=== PATIENT | male | born 1945 | race Caucasian/White ===

== ENCOUNTER 2020-08-17 13:45 | Outpatient (CLI) | payer MEDICARE, OTHER, SELFPAY ==
--- NOTE | ~2020-08-17 | US_ITS ---
US renal BI 08/17/2020 14:15 Procedure: Realtime transabdominal ultrasound of the kidneys and bladder. Indication: Chronic kidney disease stage III Comparison: No prior studies for comparison. Findings: Renal echotexture is normal bilaterally without hydronephrosis, contour deforming mass or r enal calculus. The right kidney measures 10.8 cm and left kidney measures 11.4 cm. Bladder within no rmal limits. Impression: 1: Unremarkable renal ultrasound. No stones, masses or hydronephrosis. Reviewed, dictated and finalized at location A. [facility] Impression: 1: Unremarkable renal ultrasound. No stones, masses or hydronephrosis.
== END 2020-08-17 13:46 | disposition home or self-care (01) ==
PROVIDERS: PCP Family Medicine; Visit Provider Internal Medicine Nephrology
DX: N18.32 Chronic kidney disease, stage 3b (principal); E11.29 Type 2 diabetes mellitus with other diabetic kidney complication; I12.9 Hypertensive chronic kidney disease with stage 1 through stage 4 chronic kidney disease, or unspecified chronic kidney disease
CPT/HCPCS: 76775

== ENCOUNTER 2021-02-22 11:30 | Outpatient (CLI) | payer MEDICARE, OTHER, SELFPAY ==
[2021-02-22 11:56] LABS: Basophils Absolute Auto 0.1 K/mm3 (0.0-0.1); Basophils Percent Auto 0.9 % (0.2-1.2); Eosinophils Absolute Auto 0.5 K/mm3 (0-0.3); Hematocrit 40.4 % (42.0-52.0); Hemoglobin 13.5 g/dL (14.0-18.0); Immature Granulocyte Absolute 0.02 K/mm3 (0.00-0.031); Immature Granulocyte Percent A 0.2 % (0-0.5); Lymphocytes Absolute Auto 2.41 K/mm3 (0.9-3.2); Lymphocytes Percent Auto 29.6 % (18.3-44.2); Mean Corpuscular HGB Conc 33.4 g/dl (32-36); Mean Corpuscular Hemoglobin 31.3 pg (26-34); Mean Corpuscular Volume 93.5 fl (80-100); Monocytes Absolute Auto 0.7 K/mm3 (0.1-0.6); Monocytes Percent Auto 8.5 % (2.6-8.5); Neutrophils Absolute Auto 4.5 K/mm3 (1.3-6.7); Neutrophils Percent Auto 54.8 % (45.5-73.1); Platelet Count Result 249 k/mm3 (150-375); Red Blood Count 4.32 M/mm3 (4.6-6.20); Red Cell Distribution Width 14.3 % (11.5-14.5); White Blood Count 8.1 K/mm3 (4.5-10.0)
[2021-02-22 16:30] LABS: Alanine Aminotransferase 28 U/L (4-50); Albumin Level 4.8 g/dL (3.5-5.1); Alkaline Phosphatase 43 U/L (38-126); Anion Gap 13 mmol/L (8-16); Aspartate Amino Transferase 71 U/L (17-59); Bilirubin,Total 0.5 mg/dL (0.2-1.3); Blood Urea Nitrogen 29 mg/dL (9-20); Calcium 9.7 mg/dL (8.4-10.2); Carbon Dioxide 24 mmol/L (22-30); Chloride 101 mmol/L (98-107); Estimated Glomerular Filt Rate 34; Glucose 113 mg/dL (65-110); Potassium 4.6 mmol/L (3.4-5.0); Sodium 138 mmol/L (137-145)
[2021-02-22 16:38] LABS: Immunoglobulin A 90 mg/dL (70-400); Immunoglobulin G 1540 mg/dL (700-1600); Immunoglobulin M 53 mg/dL (40-230)
[2021-02-25 21:11] LABS: Beta-2-Microglobulin 3.21 mg/L (<=2.51)
[2021-02-26 04:47] LABS: Kappa\\Lambda Light Chains 1.56 (0.26-1.65)
[2021-02-26 22:41] LABS: Albumin 4.5 g/dL (3.8-4.8); Alpha 1 Globulin 0.2 g/dL (0.2-0.3); Alpha 2 Globulin 0.8 g/dL (0.5-0.9); Beta 1 Globulin 0.6 g/dL (0.4-0.6); Gamma Globulin 1.4 g/dL (0.8-1.7); Protein, Total 7.9 g/dL (6.1-8.1)
== END 2021-02-22 11:31 | disposition home or self-care (01) ==
LOC: ANHLAB 11:33
PROVIDERS: PCP Family Medicine; Visit Provider Internal Medicine Hematology & Oncology
DX: D72.9 Disorder of white blood cells, unspecified (principal)
CPT/HCPCS: 36415; 80053; 82232; 82784; 83883; 84155; 84165; 85025

== ENCOUNTER 2023-04-02 08:43 | Outpatient (CLI) | payer MEDICARE, OTHER, SELFPAY ==
[2023-04-19 13:18] VITALS: BMI 31.0
--- NOTE | 2023-04-19 13:18 | WPDHOMESLEEP ---
Sleep Study - Home Unattended Date of Study: 04/02/23 Ordering Provider: Atul Beckford MD Interpreting Provider: Debora Godfrey MD Home Sleep Study Type: Watch PAT Height: 1.73 m Weight: 92.533 kg Body Mass Index: 31.0 Neck Circumference (inches): 16 [place]: 4 Reason for Sleep Study Loud snoring Sleep History Jean Paul Kaufman is an 78-year-old man with loud snoring. He never awakens from sleep feeling short of breath. He never wakes at night with heartburn, belching or coughing.??He frequently snores, occasionally snores loudly enough that others complain. He never has trouble sleeping when he has a cold. He never wakes up gasping for breath during the night. He never sweats excessively at night. He never notices his heart pounding or beating irregularly during the night. He rarely falls asleep during the day. He occasionally falls asleep involuntarily, never falls asleep while driving although he is concerned that this might happen. He never experiences loss of muscle tone with strong emotion. He never has daytime difficulty at work as he is retired. He never feels paralyzed on waking or falling asleep. He never experiences vivid dreams upon waking or falling asleep. He rarely feels afraid of going to sleep. He never has nightmares. He rarely recalls his dreams. He occasionally has thoughts racing through his mind. He never feels sad or depressed. He never feels anxiety. He occasionally notices parts of his body jerk. He is not sure if he kicks during the night. He never feels crawling or aching feelings in his legs. He never feels leg pain at night. He never has morning jaw pain, he is not aware if he grinds his teeth at night. He never feels bothered by pain during the day, never awakened by pain during the night. He never wakes up feeling stiff in the morning, and he never wakes feeling sore or achy. He never awakens with pain in his neck, spine, or joints. Normal bedtime is between 9:00 p.m. and 9:30 p.m., falling asleep within 5 minutes to 20 minutes. He wakes once during the night to urinate. He typically gets between 5 and 8 hours of sleep per night. His wake up time is between 4:30 a.m. and 5:00 a.m.. He takes no naps in the day. Habits:??Tobacco: former smoker, quit years ago Caffeine: 3 servings. 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 urine microalbumin ratio 66 on 03/13/2023. Screening for diabetic retinopathy no diabetic retinopathy on 08/02/2021. No diabetic retinopathy the 07/16/2022. Telangiectasias UTI (urinary tract infection) (~09/10/22) Vitamin B12 deficiency anemia vitamin B12 low at 309 with hemoglobin 13.5 on 02/22/2022. Vitamin D deficiency, unspecified (10/23/21) Level low at 28 on 10/23/2021 Family History Family History Grandparent Diabetes mellitus, Onset Age: 40 Sibling Diabetes mellitus Family history of hypercholesterolemia Mother Patient's mother is , Onset Age: 93 Father Acute myocardial infarction, Onset Age: 86 Other Hypertension Social History Social History Smoking status: Former smoker ( the patient smoked about 1/2 of a pack daily for several years over 20 years ago.) Second hand tobacco smoke exposure: Yes Smoking end date: 06/10/97 Alcohol intake: current Alcohol use details: deon
== END 2023-04-04 11:04 | disposition home or self-care (01) ==
PROVIDERS: PCP Family Medicine; Visit Provider Family Medicine
DX: G47.10 Hypersomnia, unspecified (principal); G47.33 Obstructive sleep apnea (adult) (pediatric)
CPT/HCPCS: 95800

== ENCOUNTER 2023-05-06 08:24 | Outpatient (CLI) | payer MEDICARE, OTHER, SELFPAY ==
[2023-05-24 00:31] VITALS: BMI 32.4
--- NOTE | 2023-05-24 00:31 | WPDSLEEPSTUD ---
Sleep Study Date of Study: 05/06/23 Ordering Provider: Atul Beckford MD Interpreting Physician: Debora Godfrey MD Sleep Study Type: BiPAP Titration Height: 1.69 m Weight: 92.533 kg Body Mass Index: 32.4 Neck Circumference (inches): 16 [place]: 4 Reason for Sleep Study * 04/02/2023 -home sleep test using WatchPat on 04/02/2023 shows extremely severe obstructive sleep apnea, the apnea-hypopnea index is 52.2 with desaturation to 64% and snoring.??The patient spent 38.4 minutes below 88%.? He returns for a CPAP titration. Sleep History Jean Paul Kaufman is an 78-year-old man with loud snoring. He never awakens from sleep feeling short of breath. He never wakes at night with heartburn, belching or coughing.??He frequently snores, occasionally snores loudly enough that others complain. He never has trouble sleeping when he has a cold. He never wakes up gasping for breath during the night.? He never sweats excessively at night. He?never notices his heart pounding or beating irregularly during the night. He rarely falls asleep during the day. He?occasionally falls asleep involuntarily, never falls asleep while driving? although he is concerned that this might happen. He never experiences loss of muscle tone with strong emotion. He?never has daytime difficulty at work as he is retired.? He never feels paralyzed on waking or falling asleep. He never experiences vivid dreams upon waking or falling asleep. He rarely feels afraid of going to sleep. He never has nightmares. He rarely recalls his dreams. He occasionally has thoughts racing through his mind. He never feels sad or depressed. He never feels anxiety. He occasionally notices parts of his body jerk. He is not sure if he kicks during the night. He never feels crawling or aching feelings in his legs. He never feels leg pain at night. He never has morning jaw pain,? he is not aware if he grinds his teeth at night.? He never feels bothered by pain during the day, never awakened by pain during the night. He never wakes up feeling stiff in the morning, and he? never wakes feeling sore or achy.? He?never awakens with pain in his neck, spine, or joints. Normal bedtime is between 9:00 p.m. and 9:30 p.m., falling asleep within 5 minutes to 20 minutes. He wakes once during the night to urinate. He typically gets? between 5 and 8 hours of sleep per night. His wake up time is between 4:30 a.m. and 5:00 a.m.. He takes no naps in the day.? Habits:??Tobacco: former smoker, quit years ago? ? ? Caffeine: 3 servings. ? Alcohol: seldom ? ? Recreational substances: none [facility] Past Medical History Medical History (Updated 05/24/23 @ 00:52 by Debora Godfrey MD) Abscess and cellulitis of gluteal region Acute non-recurrent maxillary sinusitis At low risk for fall Benign hypertension with chronic kidney disease BMI 32.0-32.9,adult Chondromalacia, knee Chronic low back pain without sciatica Eczema Eosinophilia Frequent urination Hypersomnia Low back pain Obesity (BMI 30.0-34.9) Persistent microalbuminuria associated with type 2 diabetes mellitus (02/16/21) microalbuminuria with ratio of 47 on 02/16/2021. urine microalbumin ratio 66 on 03/13/2023. Screening for diabetic retinopathy no diabetic retinopathy on 08/02/2021. No diabetic retinopathy the 07/16/2022. Telangiectasias UTI (urinary tract infection) (~09/10/22) Vitamin B12 deficiency anemia vitamin B12 low at 309 with hemoglobin 13.5 on 02/22/2022. Vitamin D deficiency, unspecified (10/23/21) Level low at 28 on 10/23/2021 Family History Family History Grandparent Diabetes mellitus, Onset Age: 40 Sibling Diabetes mellitus Family history of hypercholesterolemia Mother Patient's mother is , Onset Age: 93 Father Acute myocardial infarction, Onset Age: 86 Other Hypertension Social History Social History (Reviewed 04/19/23 @ 13:25 by Debora Alicea
== END 2023-05-07 06:56 | disposition home or self-care (01) ==
LOC: ANHCSM 08:25
PROVIDERS: PCP Family Medicine; Visit Provider Family Medicine
DX: G47.33 Obstructive sleep apnea (adult) (pediatric) (principal); G47.39 Other sleep apnea
CPT/HCPCS: 95811

== ENCOUNTER 2023-09-03 08:49 | Emergency (ER) | payer MEDICARE, OTHER, SELFPAY ==
--- NOTE | ~2023-09-03 | CT_ITS ---
EXAMINATION: CTA chest PE protocol DATE: 09/03/2023 10:28 INDICATION: Hemoptysis. TECHNIQUE: Computed tomography angiography (CTA) of the chest was performed with 100 mL Omnipaque-350 intravenous contrast timed to evaluate the pulmonary arteries. Coronal maximum intensity projection 3D-reconstructions were created by the technologist. Automated exposure control and iterative reconst ruction technique were employed. The dose-length product was 502.37 mGy-cm. COMPARISON: None. FINDINGS: The lungs demonstrate mild atelectasis. No pleural effusion. There is a 4.4 cm nodule in ri ght thyroid lobe. Cardiomegaly is noted. No pericardial effusion. There is no pulmonary embolus. Ther e is a 15 mm cyst in right kidney. Median sternotomy wires are noted. There is mild thoracic spondylo sis. IMPRESSION: 1. No pulmonary embolus. 2. Right thyroid nodule. Consider thyroid ultrasound for risk stratification. Reviewed, dictated and finalized at location E.
[2023-09-03 09:03] VITALS: BP 143/61; PULSE 59; RESP 22; TEMP 36.7; O2SAT 97
--- NOTE | 2023-09-03 09:19 | ED.GENADULT ---
HPI - General Adult General Chief complaint: Unspecified Stated complaint: coughing up blood Time Seen by Provider: 09/03/23 09:09 Source: patient Mode of arrival: ambulatory Limitations: no limitations History of Present Illness HPI narrative: This is an 78-year-old male that presents to the emergency department for hemoptysis. Reports this started this morning. He has had 2 episodes of this. Clear sputum with blood streaks. No other associated symptoms. He is a former smoker. Quit about 20 years ago. Denies fevers, chest pain, shortness of breath, or lower extremity edema. Related Data Home Medications Medication Instructions Recorded Confirmed carvedilol 3.125 mg tablet 3.125 mg PO Q12H 08/28/23 08/28/23 Allergies Allergy/AdvReac Type Severity Reaction Status Date / Time No Known Allergies Allergy Verified 09/03/23 09:05 Review of Systems Review of Systems: CONSTITUTIONAL: Denies fever ENT: Denies sore throat CARDIOVASCULAR: Denies chest pain, or edema. RESPIRATORY: Reports cough. Denies dyspnea. All systems reviewed & are unremarkable except as noted in HPI and below PMFSH Past Medical History Medical History (Updated 09/03/23 @ 10:48 by Makenna Mensah PA-C) Abscess and cellulitis of gluteal region Acute non-recurrent maxillary sinusitis At low risk for fall Benign hypertension with chronic kidney disease BMI 32.0-32.9,adult Chondromalacia, knee Chronic low back pain without sciatica Eczema Eosinophilia Frequent urination Hypersomnia Low back pain Obesity (BMI 30.0-34.9) Persistent microalbuminuria associated with type 2 diabetes mellitus (02/16/21) microalbuminuria with ratio of 47 on 02/16/2021. urine microalbumin ratio 66 on 03/13/2023. Screening for diabetic retinopathy no diabetic retinopathy on 08/02/2021. No diabetic retinopathy the 07/16/2022. Telangiectasias UTI (urinary tract infection) (~09/10/22) Vitamin B12 deficiency anemia vitamin B12 low at 309 with hemoglobin 13.5 on 02/22/2022. Vitamin D deficiency, unspecified (10/23/21) Level low at 28 on 10/23/2021 Family History Family History Grandparent Diabetes mellitus, Onset Age: 40 Sibling Diabetes mellitus Family history of hypercholesterolemia Mother Patient's mother is , Onset Age: 93 Father Acute myocardial infarction, Onset Age: 86 Other Hypertension Social History Social History (Updated 08/28/23 @ 08:45 by Maxine Oviedo MA) Smoking status: Former smoker ( the patient smoked about 1/2 of a pack daily for several years over 20 years ago.) Second hand tobacco smoke exposure: Yes Smoking end date: 06/10/97 Alcohol intake: current Alcohol use details: wine or beer once a month Substance use: never Substance use type: does not use Do You Feel Safe in your Home?: Yes Lack of Transportation: No Lack of Food: Never True Current Housing: I Have Housing Concerned About Future Housing: No Difficulty Paying Gas/Electric Bills: No Difficulty Paying for Meds: No Currently Unemployed: No Education: Master's Degree or Higher Difficulty w/ Childcare or Family Care: No Gender identity (if verbalized by the patient): Male Exam Narrative: GENERAL: Elderly, well-nourished, and in no acute distress. HEAD: Normocephalic, atraumatic. EYES: EOMI. ENT: Nares clear, no rhinorrhea or epistaxis. Mucous membranes moist. Oropharynx without tonsillar hypertrophy exudate or other lesions. NECK: Supple. No adenopathy or masses. No JVD CHEST: Clear to auscultation. No respiratory distress. No wheezes rales or rhonchi HEART: Regular rate and rhythm. No murmur heard. Normal peripheral pulses. EXTREMITIES: Normal range of motion. No edema. SKIN: Warm, dry, no rash. NEURO: No focal deficits. Alert and oriented x3. PSYCH: Normal mood and affect Course Course Emergency Course: [place]
[2023-09-03 09:20] VITALS: BP 146/69; PULSE 58; RESP 16; TEMP 36.7; O2SAT 98
[2023-09-03 09:20] LABS: Basophils Absolute Auto 0.1 K/mm3 (0.0-0.1); Basophils Percent Auto 0.8 % (0.2-1.2); Eosinophils Absolute Auto 0.9 K/mm3 (0-0.3); Eosinophils Percent Auto 8.8 % (0-4.4); Hematocrit 41.3 % (42.0-52.0); Hemoglobin 13.8 g/dL (14.0-18.0); Immature Granulocyte Absolute 0.02 K/mm3 (0.00-0.031); Immature Granulocyte Percent A 0.2 % (0-0.5); Lymphocytes Percent Auto 31.2 % (18.3-44.2); Mean Corpuscular HGB Conc 33.4 g/dl (32-36); Mean Corpuscular Hemoglobin 32.6 pg (26-34); Mean Corpuscular Volume 97.6 fl (80-100); Mean Platelet Volume 9.5 fl (7.4-10.4); Monocytes Absolute Auto 0.8 K/mm3 (0.1-0.6); Monocytes Percent Auto 8.5 % (2.6-8.5); Neutrophils Absolute Auto 4.8 K/mm3 (1.3-6.7); Neutrophils Percent Auto 50.5 % (45.5-73.1); Platelet Count Result 242 k/mm3 (150-375); Red Blood Count 4.23 M/mm3 (4.6-6.20); Red Cell Distribution Width 14.1 % (11.5-14.5); White Blood Count 9.6 K/mm3 (4.5-10.0)
[2023-09-03 09:34] LABS: Alanine Aminotransferase 19 U/L (6-50); Albumin Level 4.7 g/dL (3.5-5.1); Alkaline Phosphatase 43 U/L (38-126); Anion Gap 10 mmol/L (8-16); Aspartate Amino Transferase 28 U/L (17-59); Bilirubin,Total 0.7 mg/dL (0.2-1.3); Blood Urea Nitrogen 30 mg/dL (9-20); Calcium 9.7 mg/dL (8.4-10.2); Carbon Dioxide 22 mmol/L (22-30); Chloride 104 mmol/L (98-107); Estimated CRCL calculation 33 ml/min; Estimated Glomerular Filt Rate 36; Glucose 104 mg/dL (65-110); INR 1.1; Potassium 4.5 mmol/L (3.4-5.0); Prothrombin Time 14.9 Seconds (11.1-14.7); Sodium 136 mmol/L (137-145)
[2023-09-03 09:35] LABS: Partial Thromboplastin Time 27.6 Seconds (22.3-36.8)
[2023-09-03 09:44] LABS: D Dimer 0.53 ug/mL (<0.48)
[2023-09-03 10:10] LABS: Influenza A QL RT-PCR Negative (Negative); Influenza B QL RT-PCR Negative (Negative); RSV RNA, RT-PCR Negative (Negative); SARS-CoV-2 RNA PCR Negative (Negative)
== END 2023-09-03 11:35 | disposition home or self-care (01) ==
PROVIDERS: Family Medicine; Emergency Provider Physician Assistant; PCP Family Medicine
DX: R04.2 Hemoptysis (principal); E04.1 Nontoxic single thyroid nodule; Z20.822 Contact with and (suspected) exposure to COVID-19; F17.210 Nicotine dependence, cigarettes, uncomplicated
CPT/HCPCS: 36415; 71275; 80053; 85025; 85380; 85610; 85730; 87637; 99284; Q9967

== ENCOUNTER 2023-09-09 10:32 | Outpatient (CLI) | payer MEDICARE, OTHER, SELFPAY ==
--- NOTE | ~2023-09-09 | US_ITS ---
Thyroid ultrasound. Clinical History: Thyroid nodule Findings: Real-time sonography of the thyroid gland was performed. The right lobe measures 7.3 x 4.3 x 4.4 cm. The left lobe measures 4.0 x 2.0 x 1.3 cm. The isthmus is 2 mm in AP diameter. There is a dominant right midpole nodule measuring 5.3 x 3.4 x 3.8 cm, probably solid isoechoic with small scattered cystic components. There is a 6 mm hypoechoic solid nodule at the left midpole anteri sugey. Impression: Dominant 5.3 cm right midpole nodule. Given size, FNA is advised to establish as such a diagnosis.. Reviewed, dictated and finalized at location . Impression: Dominant 5.3 cm right midpole nodule. Given size, FNA is advised to establish a s such a diagnosis..
== END 2023-09-09 10:33 ==
LOC: MICIMG 10:33
PROVIDERS: PCP Family Medicine; Visit Provider Family Medicine
DX: E04.1 Nontoxic single thyroid nodule (principal)
CPT/HCPCS: 76536

== ENCOUNTER 2024-06-04 12:16 | Outpatient (CLI) | payer MEDICARE, OTHER, SELFPAY ==
--- NOTE | ~2024-06-04 | US_ITS ---
EXAMINATION: US FNA w image guidance DATE: 06/04/2024 13:53 INDICATION: Nontoxic single thyroid nodule. TECHNIQUE: The procedure and its benefits and risks were discussed with the patient. Risks specifically discusse d included bleeding. The patient verbalized understanding of the risks and agreed to proceed. The nec k was prepped and draped in the usual sterile manner. 1% lidocaine was used for local anesthesia. 6 passes were made with a 25G needle into the lesion under ultrasound guidance. There were no immedia te complications. FINDINGS: Grayscale ultrasound images demonstrate needles advanced into a 5.7 cm nodule in right thyroid lobe f or biopsy. IMPRESSION: 1. Ultrasound-guided fine needle aspiration of a right thyroid nodule. Reviewed, dictated and finalized at location A. [facility]
== END 2024-06-04 12:17 | disposition home or self-care (01) ==
PROVIDERS: PCP Family Medicine; Visit Provider Otolaryngology
DX: E04.1 Nontoxic single thyroid nodule (principal)
CPT/HCPCS: 10005; 88172; 88173; 88305